=== PATIENT | male | born 1990 | race Two or more races ===

== ENCOUNTER 2018-08-06 13:30 | Emergency (ER) | payer BC ==
[~2018-08-06] VITALS: Ht 180.3 cm; Wt 77.6 kg
[2018-08-06 13:39] VITALS: Ht 180.3 cm; Wt 77.6 kg
[2018-08-06 15:19] LABS: CREATININE SERUM 0.8 mg/dL (0.7-1.3); GFR1 > 60 mL/min; POTASSIUM SERUM 3.7 mmol/L (3.5-5.1)
[2018-08-06 15:21] LABS: CALCIUM 9.3 mg/dL (8.5-10.1); CARBON DIOXIDE 24.9 mmol/L (21-32); CHLORIDE SERUM 104 mmol/L (98-107); GLUCOSE SERUM 98 mg/dL (74-106); SODIUM SERUM 140 mmol/L (136-145)
[2018-08-06 15:23] LABS: BASOPHIL % 0.7 % (0-2); PLATELET COUNT 288 x10^3mcL (130-400); RED CELL DISTRIBUTION WIDTH 11.9 % (11.5-14.5)
[2018-08-06 15:27] LABS: ALBUMIN 3.7 g/dL (3.4-5.0); ALKALINE PHOSPHATASE 87 U/L (46-116); ALT/SGPT 49 U/L (16-63); AST/SGOT 30 U/L (15-37); BILIRUBIN TOTAL 0.75 mg/dL (0.20-1.00); C REACTIVE PROTEIN 1.5 mg/dL (<=0.9); TOTAL PROTEIN, SERUM 7.2 g/dL (6.4-8.2); URIC ACID 5.4 mg/dL (3.5-7.2)
[2018-08-06 16:15] LABS: AMPHETAMINE QUAL UR NONE DETECTED (See below)
[2018-08-06 16:25] VITALS: BP 135/84
== END 2018-08-06 17:19 | disposition home or self-care (01) ==
LOC: ED 13:30
PROVIDERS: Emergency Medicine
DX: M25.521 Pain in right elbow (principal); F17.210 Nicotine dependence, cigarettes, uncomplicated; Z71.6 Tobacco abuse counseling
CPT/HCPCS: 99406; J1885; J2930; J7030